=== PATIENT | male | born 1975 | race Caucasian/White ===

== ENCOUNTER 2018-04-05 12:01 | Emergency (ER) | payer OTHER ==
[2018-04-05 12:12] VITALS: BP 113/62; PULSE 65; RESP 18; TEMP 98.7
[2018-04-05] MEDS ORDERED: SODIUM CHLORIDE 0.9% 1,000 ML IV STA (12:25)
[2018-04-05] MEDS ORDERED: ACET/COD 300 MG/30 MG STARTER PACK 6 TAB BTL PO STA (12:49)
--- NOTE | 2018-04-05 12:49 | ED ---
General Adult HPI - General Chief complaint: Abdominal Pain Stated complaint: Lower back pain Time Seen by Provider: 04/05/18 12:23 Source: patient, RN notes reviewed Mode of arrival: ambulatory Limitations: no limitations - History of Present Illness Initial comments: 42-year-old male present emergency from chief complaint of right side pain. Patient states his started last few days to a week after working with a chest service. 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 He states he tries to switch size but states most pain is on his right side. It is worse with movement better at rest denies any bowel bladder incontinence or retention. Patient states she's had injuries like this in the past. No abdominal pain no difficulty urinating bowel movements have been normal. - Related Data Previous Rx's Medication Instructions Recorded Cyclobenzaprine [Flexeril] 10 mg PO TID PRN #15 tab 04/05/18 Ibuprofen [Motrin] 600 mg PO Q8HR PRN #30 tab 04/05/18 Allergies Allergy/AdvReac Type Severity Reaction Status Date / Time No Known Allergies Allergy Verified 04/05/18 12:08 Review of Systems ROS Statement: Those systems with pertinent positive or pertinent negative responses have been documented in the HPI. ROS Other: All systems not noted in ROS Statement are negative. Past Medical History Past Medical History: Osteoarthritis (OA) Additional Past Medical History / Comment(s): osteoporsis History of Any Multi-Drug Resistant Organisms: None Reported Past Surgical History: No Surgical Hx Reported Past Psychological History: Depression Smoking Status: Current every day smoker Past Alcohol Use History: None Reported Past Drug Use History: Marijuana General Exam Limitations: no limitations General appearance: alert, in no apparent distress Head exam: Present: atraumatic, normocephalic, normal inspection Neck exam: Present: normal inspection, full ROM. Absent: tenderness, meningismus, lymphadenopathy Respiratory exam: Present: normal lung sounds bilaterally. Absent: respiratory distress, wheezes, rales, rhonchi, stridor Cardiovascular Exam: Present: regular rate, normal rhythm, normal heart sounds. Absent: systolic murmur, diastolic murmur, rubs, gallop, clicks GI/Abdominal exam: Present: soft, normal bowel sounds. Absent: distended, tenderness, guarding, rebound, rigid Extremities exam: Present: other (Lower extremity strength equal bilaterally, neurovascular intact equal color equal warmth) Back exam: Present: full ROM, tenderness (Mild tenderness the right lower lumbar region), paraspinal tenderness, other (Pain with straight leg raise on the right). Absent: vertebral tenderness Neurological exam: Present: alert, oriented X3, CN II-XII intact, reflexes normal. Absent: motor sensory deficit Skin exam: Present: warm, dry, intact, normal color. Absent: rash Course Vital Signs 04/05/18 12:08 Temperature 98.7 F Pulse Rate 65 Respiratory 18 Rate Blood Pressure 113/62 O2 Sat by Pulse 98 Oximetry Medical Decision Making - Medical Decision Making 42-year-old male presented for right-sided back pain. Patient lumbar strain secondary to his work. Patient will start conservative treatment and follow-up with PCP/Dr. Asher. Patient has no red flag symptoms. We discussed return parameters. Disposition Clinical Impression: Lumbar strain Disposition: HOME SELF-CARE Condition: Stable Instructions (If sedation given, give patient instructions): Low Back Strain ( ED), Lower Back Exercises (ED) Additional Instructions: Please return to the Emergency Department if symptoms worsen or any other concerns. Prescriptions: Cyclobenzaprine [Flexeril] 10 mg PO TID PRN #15 tab PRN Reason: Muscle Spasm Ibuprofen [Motrin] 600 mg PO Q8HR PRN #30 tab PRN Reason: Pain Is patient prescribed a controlled substance at d/c from ED?: No Referrals: Nonstaff,Physician [Primary Care Provider] - 1-2 days Time of Disposition: 12:49
== END 2018-04-05 13:10 | disposition home or self-care (01) ==
LOC: EC 12:01
DX: S39.012A Strain of muscle, fascia and tendon of lower back, initial encounter (principal); R10.9 Unspecified abdominal pain; F17.200 Nicotine dependence, unspecified, uncomplicated; X50.0XXA Overexertion from strenuous movement or load, initial encounter; Y99.0 Civilian activity done for income or pay
CPT/HCPCS: 99283